=== PATIENT | male | born 1995 | race Caucasian/White ===

== ENCOUNTER 2017-06-22 14:11 | Emergency (ER) | payer MEDICAID ==
[2017-06-22 14:12] VITALS: BMI 20.9
[2017-06-22 14:17] VITALS: TEMP 97.7; O2SAT 98
--- NOTE | 2017-06-22 15:10 | C.PDOC ---
History Of Present Illness 22 yo male come in for evaluation of Right thumb pain, swelling gradually developed since yesterday after sustained fall, while playing soccer. Pt sts, pain is localized over Right 1st MCPJ, worse with thumb movement. Otherwise, pt denies obvious deformity, weakness, sensory or vascular deficits to injured hand. No previous hx of Right hand injury. Ambulate to Ed for evaluation, not in any apparent distress. Time Seen by Provider: 06/22/17 14:25 Chief Complaint (Nursing): Finger,Hand,&Wrist History Per: Patient Onset/Duration Of Symptoms: Gradual Past Medical History Reviewed: Historical Data, Nursing Documentation, Vital Signs Vital Signs: Last Vital Signs Temp 97.7 F 06/22/17 14:15 Pulse 92 H 06/22/17 14:15 Resp 20 06/22/17 14:15 BP 124/81 06/22/17 14:15 Pulse Ox 98 06/22/17 14:15 - Medical History PMH: No Chronic Diseases Surgical History: No Surg Hx - [facility] Procedures CLOSURE SKIN & SUBCUTANEOUS NEC (05/16/14) Family History: States: No Known Family Hx - Social History Hx Tobacco Use: No Hx Alcohol Use: No Hx Substance Use: No - Immunization History Hx Tetanus Toxoid Vaccination: Yes Hx Influenza Vaccination: No Hx Pneumococcal Vaccination: No Review Of Systems Except As Marked, All Systems Reviewed And Found Negative. Genitourinary: Negative for: Incontinence Musculoskeletal: Positive for: Hand Pain. Negative for: Neck Pain, Back Pain Skin: Negative for: Bruising Neurological: Negative for: Weakness, Numbness, Altered Mental Status, Headache , Dizziness Physical Exam - Physical Exam Appears: Well, Non-toxic, No Acute Distress Skin: Normal Color, Warm, No Rash Head: Atraumatic, Normacephalic Extremity: Normal ROM (mild discomfort to Right thumb extension. Otherwise, FAROM of Right hand.), Tenderness (Right hand: tenderness over Right 1st MCPJ with mild edema extend over thenar area. No palpable deformity, no neurovascular deficits distally to injury.), Capillary Refill (less than 2sec to Right hand), No Deformity (Right hand) Neurological/Psych: Oriented x3, Normal Speech, Normal Motor, Normal Sensation, Normal Reflexes ED Course And Treatment O2 Sat by Pulse Oximetry: 98 - Other Rad Right thumb X-Ray: Interpreted by Me, Viewed By Me Interpretation: (-) acute fx or dislocation Progress Note: On re-eval, pt is afebrile, hemodynamicaly stable. Non-toxic. Head: AT/NC. Right hand: contusion to Right thumb, no defomrity, no neurovascular deficits. Xray review (-) acute fx or dislocation. Thumb spical applied. Pt advised to F/u with hand specialsit in 2-3 days for re-eavl. return if any new changes. Orthopedic Time Performed: 14:39 Time Out: Side verified, Site verified, Patient ID confirmed Procedure: Splint Type: Thumb spica Location: Right, Hand Consent obtained: Verbal Performed by: Mid-level Provider Diagnosis: Sprain Disposition Counseled Patient/Family Regarding: Studies Performed, Diagnosis, Need For Followup, Rx Given - Disposition Referrals: Crista Almazan MD [Staff Provider] - Disposition: HOME/ ROUTINE Disposition Time: 14:40 Condition: STABLE Additional Instructions: SPLINT FOR 1 WEEK TAKE MEDICATION PRESCRIBED FOLLOW UP WITH HAND SPECIALIST IN 2-3 DAYS FOR RE-EVALUATION. RETURN TO ED IF ANY WORSENING OR NEW CHANGES. Prescriptions: Ibuprofen [Motrin Tab] 400 mg PO Q6 #14 tab Instructions: Finger Sprain (ED) Forms: [facility] (Syriac), Work Excuse - Clinical Impression Clinical Impression: Finger sprain
[2017-06-22 15:28] VITALS: BP 110/72; PULSE 76; RESP 18
--- NOTE | 2017-06-22 18:36 | RAD ---
PROCEDURE: Right Thumb radiographs. HISTORY: injury COMPARISON: None. TECHNIQUE: PA radiograph of the right hand, as well as spot oblique and lateral images of thumb were obtained. FINDINGS: RIGHT THUMB: No evidence of acute displaced fracture nor dislocation. Remainder of the right hand (as seen on the AP view) grossly unremarkable. JOINTS: Normal. SOFT TISSUES: Normal. OTHER FINDINGS: None. IMPRESSION: No evidence of acute displaced fracture nor dislocation.
== END 2017-06-22 15:28 | disposition home or self-care (01) ==
LOC: C.ER 14:11
DX: S63.601A Unspecified sprain of right thumb, initial encounter (principal); W19.XXXA Unspecified fall, initial encounter; Y93.66 Activity, soccer

== ENCOUNTER 2017-09-05 19:22 | Emergency (ER) | payer SELFPAY ==
[2017-09-05 19:22] VITALS: BMI 20.9
[2017-09-05 19:59] VITALS: BP 122/76; PULSE 75; RESP 18; TEMP 98.1; O2SAT 99
--- NOTE | 2017-09-05 20:51 | C.PDOC ---
History Of Present Illness 22 year old male presents to the ED for evaluation of right knee pain which began after he fell while playing soccer yesterday. Patient states symptoms are worse with movement. He denies head injury, LOC, nausea, vomiting, and extremity numbness/weakness at this time. Time Seen by Provider: 09/05/17 19:43 Chief Complaint (Nursing): Lower Extremity Problem/Injury History Per: Patient History/Exam Limitations: no limitations Onset/Duration Of Symptoms: Hrs Current Symptoms Are (Timing): Still Present Additional History Per: Patient - Knee Description Of Injury: Fell Past Medical History Reviewed: Historical Data, Nursing Documentation, Vital Signs Vital Signs: Last Vital Signs Temp 98.1 F 09/05/17 19:58 Pulse 75 09/05/17 19:58 Resp 18 09/05/17 19:58 BP 122/76 09/05/17 19:58 Pulse Ox 99 09/05/17 22:03 - Medical History PMH: No Chronic Diseases Surgical History: No Surg Hx - [facility] Procedures CLOSURE SKIN & SUBCUTANEOUS NEC (05/16/14) Family History: States: Unknown Family Hx - Social History Hx Tobacco Use: No Hx Alcohol Use: No Hx Substance Use: No - Immunization History Hx Tetanus Toxoid Vaccination: Yes Hx Influenza Vaccination: No Hx Pneumococcal Vaccination: No Review Of Systems Musculoskeletal: Positive for: Other (right knee pain ) Neurological: Negative for: Weakness, Numbness, Other (head injury/LOC ) Physical Exam - Physical Exam Appears: Non-toxic, No Acute Distress Skin: Normal Color, Warm, Dry Head: Atraumatic, Normacephalic Eye(s): bilateral: Normal Inspection, EOMI Nose: Normal Oral Mucosa: Moist Chest: Symmetrical Respiratory: No Accessory Muscle Use Extremity: No Normal ROM (decreased in right knee secondary to pain ), Tenderness, No Calf Tenderness, Capillary Refill (less than 2 seconds ), No Deformity, Other (effusion to right knee) Pulses: Left Dorsalis Pedis: Normal, Right Dorsalis Pedis: Normal Neurological/Psych: Oriented x3, Normal Speech, Normal Cognition, Normal Motor, Normal Sensation Gait: Steady ED Course And Treatment O2 Sat by Pulse Oximetry: 99 (on RA) Pulse Ox Interpretation: Normal - Other Rad KNEE XR X-Ray: Interpreted by Me, Viewed By Me Interpretation: No fx or dislcoation Progress Note: Motrin PO administered. On reassessment, patient is resting comfortably, showing no signs of distress and reports an improvement in his symptoms. Patient is stable for discharge and is advised to follow up with PMD within 2-5 days for further evaluation. Knee immobilizer and crutches given by pathology technologist. Reassessment Condition: Improved Disposition - Disposition Referrals: Christine Bedolla MD [Staff Provider] - Disposition: HOME/ ROUTINE Disposition Time: 20:47 Condition: STABLE Additional Instructions: Follow up with your primary medical doctor or clinic in 2-5 days for further evaluation. Take medications as prescribed. Return to the emergency department at any time if symptoms persist or worsen. Prescriptions: Ibuprofen [Motrin] 600 mg PO Q6 PRN #20 tab PRN Reason: Pain, Mild (1-3) Instructions: Knee Sprain (ED) Forms: [facility] (Persian) - Clinical Impression Clinical Impression: Knee effusion - PA / MASTER HEARTH TECHNICIAN / Resident Statement MD/DO has reviewed & agrees with the documentation as recorded. - Scribe Statement The provider has reviewed the documentation as recorded by the Scribe (Isidra Rm) All medical record entries made by the Scribe were at my direction and personally dictated by me. I have reviewed the chart and agree that the record accurately reflects my personal performance of the history, physical exam, medical decision making, and the department course for this patient. I have also personally directed, reviewed, and agree with the discharge instructions and disposition.
--- NOTE | 2017-09-06 08:35 | RAD ---
PROCEDURE: Right Knee Radiographs. HISTORY: pain COMPARISON: None. FINDINGS: BONES: No fracture JOINTS: Normal. No osteoarthritis. JOINT EFFUSION: Moderate suprapatellar joint effusion OTHER FINDINGS: None. IMPRESSION: Moderate suprapatellar joint effusion. No fracture
== END 2017-09-05 21:01 | disposition home or self-care (01) ==
LOC: C.ER 19:22
DX: M25.461 Effusion, right knee (principal)

== ENCOUNTER 2018-02-09 23:21 | Emergency (ER) | payer MEDICAID, OTHER ==
[2018-02-09 23:22] VITALS: BMI 20.9
--- NOTE | 2018-02-10 | C.PDOC ---
History Of Present Illness 22 year old male presents to the ED c/o fever, vomiting, diarrhea for the past 3 days. Patient reports he has not been able to tolerate PO, rates his pain at 4/10. Patient tried to eat some mac and cheese today but did not tolerated. Patient denies abdominal pain, back pain, rash, recent travel, sick contacts. Time Seen by Provider: 02/10/18 00:00 Chief Complaint (Nursing): Fever History Per: Patient History/Exam Limitations: no limitations Onset/Duration Of Symptoms: Days (3) Current Symptoms Are (Timing): Still Present Sick Contacts (Context): None Associated Symptoms: Fever, Vomiting, Diarrhea Severity: Moderate Pain Scale Rating Of: 4 Recent travel outside of the [place]: No Additional History Per: Patient Past Medical History Reviewed: Historical Data, Nursing Documentation, Vital Signs Vital Signs: Last Vital Signs Temp 99.6 F 02/10/18 02:00 Pulse 74 02/10/18 02:00 Resp 16 02/10/18 02:00 BP 129/74 02/10/18 02:00 Pulse Ox 100 02/10/18 02:00 - Medical History PMH: No Chronic Diseases Surgical History: No Surg Hx - [facility] Procedures CLOSURE SKIN & SUBCUTANEOUS NEC (05/16/14) Family History: States: Unknown Family Hx - Social History Hx Tobacco Use: No Hx Alcohol Use: No Hx Substance Use: No - Immunization History Hx Tetanus Toxoid Vaccination: Yes Hx Influenza Vaccination: No Hx Pneumococcal Vaccination: No Review Of Systems Constitutional: Positive for: Fever. Negative for: Chills Cardiovascular: Negative for: Chest Pain Respiratory: Negative for: Cough, Shortness of Breath Gastrointestinal: Positive for: Vomiting, Diarrhea. Negative for: Abdominal Pain Musculoskeletal: Negative for: Back Pain Skin: Negative for: Rash Physical Exam - Physical Exam Appears: Non-toxic, In Acute Distress (due to pain) Skin: Warm, Dry Head: Normacephalic Eye(s): bilateral: Normal Inspection Oral Mucosa: Dry Lips: Other (dry) Neck: Supple Chest: Symmetrical Cardiovascular: Rhythm Regular Respiratory: No Rales, No Rhonchi, No Wheezing Gastrointestinal/Abdominal: Soft, No Tenderness, No Guarding, No Rebound Extremity: Bilateral: Atraumatic, Normal Color And Temperature, Normal ROM Neurological/Psych: Oriented x3, Normal Speech Gait: Steady ED Course And Treatment - Laboratory Results Result Diagrams: 02/10/18 00:31 02/10/18 00:31 O2 Sat by Pulse Oximetry: 99 (On RA) Pulse Ox Interpretation: Normal Progress Note: Plan: - VBG. - Labs. - IV fluids. - Protonix 40 mg IVP. - Zofran 4 mg IVP. - UA Reevaluation Time: 01:47 Reassessment Condition: Improved Medical Decision Making Medical Decision Making: Upon provider reevaluation patient is feeling better, is medically stable, and requires no further treatment in the ED at this time. Patient will be discharged home with Rx for zofran. Counseling was provided and all questions were answered regarding diagnosis and need for follow up with the referred clinic. There is agreement to discharge plan. Return if symptoms persist or worsen. Disposition Counseled Patient/Family Regarding: Studies Performed, Diagnosis, Need For Followup, Rx Given - Disposition Referrals: [facility] [Outside] Disposition: HOME/ ROUTINE Disposition Time: 00:00 Condition: FAIR Additional Instructions: Please return if symptoms recur Prescriptions: Ondansetron ODT [Zofran ODT] 1 odt PO BID PRN #6 odt PRN Reason: Nausea/Vomiting Instructions: Nausea and Vomiting, Adult (DC) Forms: [facility] (Czech), Work Excuse - Clinical Impression Clinical Impression: Nausea & vomiting, Gastritis - Scribe Statement The provider has reviewed the documentation as recorded by the Scribe Matthew Arnett All medical record entries made by the Scribe were at my direction and personally dictated by me. I have reviewed the chart and agree that the record accurately reflects my personal performance of the history, physical exam, medical decision making, and the department course for this patient. I have also personally directed, reviewed, and agree with the discharge instructions and disposition.
[2018-02-10 00:39] LABS: BASO # 0.1 K/uL (0.0-0.2); BASO % 1.1 % (0.0-2.0); EOS % 0.4 % (0.0-4.0); HEMOGLOBIN 16.4 g/dL (12.0-18.0); LYMPH # 1.4 K/uL (1.0-4.3); LYMPH % 32.4 % (20.0-40.0); MEAN CELL VOLUME 83.3 fL (80.0-94.0); MEAN CORPUSCULAR HEMOGLOBIN 29.3 pg (27.0-31.0); MEAN CORPUSCULAR HGB CONC 35.2 g/dL (33.0-37.0); MEAN PLATELET VOLUME 9.3 fL (7.2-11.7); MONO # 0.5 K/uL (0.0-0.8); MONO % 10.9 % (0.0-10.0); NEUT # 2.4 K/uL (1.8-7.0); NEUT % 55.2 % (50.0-75.0); NRBC % 0.1 % (0.0-2.0); RBC 5.58 Mil/uL (4.40-5.90); RED CELL DISTRIBUTION WIDTH 12.7 % (11.5-14.5); WHITE BLOOD COUNT 4.4 K/uL (4.8-10.8)
[2018-02-10 00:40] LABS: INR 1.2; PROTHROMBIN TIME 12.8 SECONDS (9.7-12.2)
[2018-02-10 00:50] LABS: ALB/GLOB RATIO 1.2 (1.0-2.1); ALBUMIN 4.6 g/dL (3.5-5.0); ALT/SGPT 13 U/L (21-72); AST/SGOT 25 U/L (17-59); BLOOD UREA NITROGEN 9 mg/dL (9-20); CALCIUM 9.1 mg/dl (8.6-10.4); GFR AFRICAN-AMERICAN > 60; GFR NON-AFRICAN AMERICAN > 60; LIPASE 164 U/L (23-300)
[2018-02-10] MEDS ORDERED: Sodium Chloride 0.9% 1,000 ML IV ONE ×2 (00:50)
[2018-02-10 00:56] LABS: URINE BILIRUBIN NEGATIVE (NEGATIVE); URINE BLOOD NEGATIVE (NEGATIVE); URINE CLARITY Clear (Clear); URINE COLOR Yellow (YELLOW); URINE GLUCOSE (UA) NORMAL (Normal); URINE LEUKOCYTE ESTERASE NEG Leu/uL (Negative); URINE PROTEIN NEGATIVE (NEGATIVE); URINE UROBILINOGEN NORMAL mg/dL (0.2-1.0)
[2018-02-10 00:59] LABS: VENOUS BLOOD GAS BASE EXCESS -0.8 mmol/L (0.0-2.0); VENOUS BLOOD GAS PCO2 44 mmHg (40-60); VENOUS BLOOD GAS PO2 33 mm/Hg (30-55); VENOUS BLOOD PH 7.36 (7.32-7.43)
[2018-02-10 02:01] VITALS: RESP 16
[2018-02-10 02:27] VITALS: O2SAT 99
[2018-02-10 02:36] VITALS: BP 116/67; PULSE 80; TEMP 99.3
== END 2018-02-10 02:35 | disposition home or self-care (01) ==
LOC: C.ER 23:21
DX: K29.70 Gastritis, unspecified, without bleeding (principal); R11.2 Nausea with vomiting, unspecified
CPT/HCPCS: 80053; 81001; 82803; 83690; 85025; 85610; 85730; 87040; 96361; 96374; 96375; 99284; C9113; J1885; J2405; J7040

== ENCOUNTER 2018-08-20 19:05 | Emergency (ER) | payer MEDICAID ==
[2018-08-20 19:06] VITALS: BMI 20.9
[2018-08-20 19:14] VITALS: RESP 20
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
[2018-08-20 21:57] VITALS: BP 123/74; PULSE 60; TEMP 98.1
[2018-08-20 22:26] VITALS: O2SAT 100
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
== END 2018-08-20 21:56 | disposition home or self-care (01) ==
LOC: C.ER 19:05
DX: S16.1XXA Strain of muscle, fascia and tendon at neck level, initial encounter (principal); V89.2XXA Person injured in unspecified motor-vehicle accident, traffic, initial encounter; M79.661 Pain in right lower leg